=== PATIENT | female | born 2000 | race Caucasian/White ===

== ENCOUNTER 2023-09-09 06:15 | Inpatient (IN) ==
[2023-09-09] MEDS: LR 1,000 ML IV 1,000 ML IV ONE ×4 (06:55→17:25)
[2023-09-09] MEDS ORDERED: ZOFRAN INJ 4 MG VIAL IVP PRN ×3 (07:16→19:19)
[2023-09-09] MEDS ORDERED: STADOL INJ IVP PRN (07:16)
[2023-09-09] MEDS ORDERED: REGLAN INJ 10 MG VIAL IVP PRN ×3 (07:16→19:19)
--- NOTE | 2023-09-09 07:20 | DR.OB ---
OB QUICK NOTE Assessment/Plan (1) : Assessment/Plan: L&D 09/09/23 at 7:05am S-No complaint. O-Afebrile,VSS IRX=912 with good LTV, +accel, no decel. CTX=none CVX=1cm/50%/-1/VTX AROM with clear fluid. IUPC placed. A-IUP at 38 3/7 weeks for induction Oligohydramnios P-Begin pitocin induction Anticipate
[2023-09-09] MEDS: OXYTOCIN 20 UNIT/1,000 ML-NS 20 UNIT/1,000 ML PLAST..BAG IV PRN (07:40)
[2023-09-09] MEDS: D5 1/2 NS 1,000 ML 1,000 ML IV SCH (08:36)
[2023-09-09] MEDS: NUBAIN INJ 20 MG AMP IVP PRN (09:24)
[2023-09-09] MEDS: NUBAIN INJ 200 MG VIAL MULTIDOSE ONE (10:22)
[2023-09-09 11:39] LABS: BILIRUBIN,URINE NEGATIVE (NEGATIVE); BLOOD/HEMOGLOBIN,URINE NEGATIVE (NEGATIVE); GLUCOSE, URINE NEGATIVE (NEGATIVE); KETONES,URINE 3+ (NEGATIVE); LEUKOCYTE ESTERASE ,URINE NEGATIVE (NEGATIVE); NITRITES,URINE NEGATIVE (NEGATIVE); PROTEIN,URINE 2+ (NEGATIVE); UROBILINOGEN,URINE NORMAL (NORMAL)
[2023-09-09 11:46] LABS: APPEARANCE,URINE CLEAR (CLEAR); COLOR,URINE YELLOW (YELLOW)
--- NOTE | 2023-09-09 11:55 | DR.OB ---
OB QUICK NOTE Assessment/Plan (1) : Assessment/Plan: L&D 09/09/23 at 11:50am Pitocin=18mu/min. S-No complaint except pain with CTX. O-Afebrile,VSS EDR=150 with good LTV, +accel, no decel. CTX=q 1 1/2 to 2 min., about 35-55mmHg CVX=1cm/50%/-1/VTX A-IUP at 38 3/7 weeks for induction Oligohydramnios P-Cont. pitocin induction Anticipate
[2023-09-09 11:58] LABS: BACTERIA,URINE NEGATIVE /HPF (NEGATIVE); RBC,URINE NONE SEEN /HPF (0-3); SQUAMOUS EPITHELIAL CELL,UR RARE /HPF (NEGATIVE)
[2023-09-09] MEDS: NOZIN NASAL SANITIZER TP ONE (14:09)
[2023-09-09] MEDS: FENTANYL VIAL INJ 100 mcg ONE (15:25)
[2023-09-09] MEDS: NAROPIN EPIDURAL 0.2% 100 ML ONE (15:32)
--- NOTE | 2023-09-09 16:47 | DR.OB ---
OB QUICK NOTE Assessment/Plan (1) : Assessment/Plan: L&D 09/09/23 at 4:40pm S-No complaint. s/p epidural. O-Afebrile,VSS SKO=703 with poor LTV. Prolonged 6 min. decel. Occasional late variables. CTX=q 1 1/2 to 2 min., about 45-55mmHg CVX=1-2cm/50%/-1 A-IUP at 38 3/7 weeks with non-reassuring FHT distant from delivery P-To C/S
[2023-09-09] MEDS: LIDOCAINE 2%-EPI 1:200,000 ONE (17:02)
[2023-09-09] MEDS: ANCEF VIAL 1 GRAM ONE (17:02)
[2023-09-09] MEDS: NS 100 ML IV 100 ML ONE (17:02)
[2023-09-09] MEDS: PITOCIN IVP ONE (17:25)
[2023-09-09] MEDS: EPHEDRINE SULFATE INJ ONE (17:55)
[2023-09-09] MEDS: VERSED ONE ×2 (18:23→18:36)
[2023-09-09] MEDS: DILAUDID INJ ONE (18:36)
[2023-09-09] MEDS: PITOCIN ONE (18:37)
[2023-09-09] MEDS ORDERED: BARHEMSYS INJ IVP PRN (18:47)
[2023-09-09] MEDS ORDERED: BENADRYL INJ 50 MG VIAL IVP PRN ×2 (18:47→19:19)
[2023-09-09] MEDS ORDERED: TORADOL 30 MG VIAL IVP PRN (19:19)
[2023-09-09] MEDS ORDERED: PERCOCET TAB 5/325 MG PO PRN (19:19)
[2023-09-09] MEDS ORDERED: NARCAN INJ IVP PRN (19:19)
[2023-09-09] MEDS ORDERED: MYLICON TAB 80 MG CHEW PO PRN (19:19)
[2023-09-09] MEDS: ADACEL or BOOSTRIX TDaP VACCINE IM ONE (20:25)
[2023-09-10 04:46] LABS: HEMATOCRIT 24.9 % (36.0-47.0); HEMOGLOBIN 8.3 g/dL (12.0-16.0)
[2023-09-10] MEDS: MOTRIN TAB 800 MG PO PRN (08:15)
[2023-09-10] MEDS: PRENATAL PLUS PO SCH (08:15)
[2023-09-10] MEDS: COLACE CAP 100 MG PO SCH (08:15)
[2023-09-10] MEDS: BACTROBAN TOPICAL OINT TOP SCH (14:33)
[2023-09-10] MEDS: PERCOCET TAB 5/325 MG PO PRN (21:11)
[2023-09-11 04:34] VITALS: O2SAT 98
[2023-09-11 08:18] VITALS: BP 116/62; PULSE 116; RESP 16; TEMP 98.5
== END 2023-09-11 11:30 | disposition home or self-care (01) | DRG 788 ==
LOC: LD 06:15 → MED/SURG 18:44
PROVIDERS: ADMIT Specialist; ATTEND Specialist